=== PATIENT | female | born 1955 | race Caucasian/White ===

== ENCOUNTER 2017-01-20 21:36 | Observation (INO) | payer MEDICAID ==
[2017-01-20] MEDS ORDERED: Aspirin 325 mg EC Tablets PO STA (21:59)
--- NOTE | 2017-01-20 22:03 | C.PDOC ---
History Of Present Illness 61 y/o female presents to the ED with complains of chest discomfort intermittently for the past 6 days. Symptoms initially onset while patient was standing in kitchen, with sudden midsternal chest pressure, diaphoresis and SOB lasting 15 minutes and then resolving. Since initial episode, pt reports similar episodes occurring with mild exertion. Pt has no known cardiac disease. FMHx heart disease. Nonsmoker. Pt referred to ED by Dr Lin for admission with unstable angina. Time Seen by Provider: 01/20/17 21:49 Chief Complaint (Nursing): Chest Pain History Per: Patient History/Exam Limitations: no limitations Onset/Duration Of Symptoms: Days, Intermittent Episodes Current Symptoms Are (Timing): Still Present Severity: Moderate Exacerbating Factors: Exertion Recent travel outside of the [place]: No Past Medical History Reviewed: Historical Data, Nursing Documentation, Vital Signs Vital Signs: Last Vital Signs Temp Pulse 82 01/20/17 21:50 Resp 16 01/20/17 21:50 BP 160/84 H 01/20/17 21:50 Pulse Ox 100 01/20/17 22:06 - Medical History PMH: HTN Family History: States: Other (heart disease) - Social History Hx Alcohol Use: No Hx Substance Use: No - Immunization History Hx Tetanus Toxoid Vaccination: No Hx Influenza Vaccination: No Hx Pneumococcal Vaccination: No Review Of Systems Except As Marked, All Systems Reviewed And Found Negative. Constitutional: Positive for: Sweats. Negative for: Fever Cardiovascular: Positive for: Chest Pain. Negative for: Palpitations Respiratory: Positive for: Shortness of Breath Gastrointestinal: Negative for: Vomiting Neurological: Negative for: Headache Physical Exam - Physical Exam Appears: Non-toxic, No Acute Distress Skin: Warm, Dry, No Rash Head: Atraumatic, Normacephalic Neck: Normal ROM, Supple Chest: Symmetrical, No Tenderness Cardiovascular: Rhythm Regular, No Murmur Respiratory: Normal Breath Sounds, No Rales, No Rhonchi, No Wheezing Gastrointestinal/Abdominal: Soft Extremity: No Pedal Edema Extremity: Bilateral: Atraumatic Neurological/Psych: Oriented x3 ED Course And Treatment - Laboratory Results Result Diagrams: 01/20/17 22:10 01/20/17 22:10 Lab Interpretation: No Acute Changes ECG: Interpreted By Ak ECG Rhythm: Sinus Rhythm ECG Interpretation: Normal O2 Sat by Pulse Oximetry: 100 (on room air) Pulse Ox Interpretation: Normal - Radiology CXR: Interpreted by Me CXR Interpretation: Yes: No Acute Disease - Physician Consult Information Time Consulting Physician Contacted: 22:36 Physician Contacted: Jovon Kaur Outcome Of Conversation: Patient to be admitted for evaluation of new onset angina. Dr Lin will consult. Disposition - Disposition Disposition: HOSPITALIZED Disposition Time: 22:36 Condition: STABLE - POA Present On Arrival: None - Clinical Impression Clinical Impression: Chest pain - Scribe Statement The provider has reviewed the documentation as recorded by the Ty Ruiz Provider Attestation: Plan: EKG, labs, CXR, aspirin, IV fluids
[2017-01-20] MEDS ORDERED: Aspirin 325 mg EC Tablets PO ONE (22:04)
[2017-01-20 22:17] LABS: BASO # 0.1 K/uL (0.0-0.2); BASO % 1.1 % (0.0-2.0); EOS # 0.1 K/uL (0.0-0.7); EOS % 2.4 % (0.0-4.0); HEMATOCRIT 35.9 % (34.0-47.0); LYMPH % 32.1 % (20.0-40.0); MEAN CELL VOLUME 85.5 fL (81.0-99.0); MEAN CORPUSCULAR HEMOGLOBIN 28.5 pg (27.0-31.0); MEAN CORPUSCULAR HGB CONC 33.3 g/dL (33.0-37.0); MONO # 0.5 K/uL (0.0-0.8); MONO % 7.7 % (0.0-10.0); RED CELL DISTRIBUTION WIDTH 13.1 % (11.5-14.5); WHITE BLOOD COUNT 6.4 K/uL (4.8-10.8)
[2017-01-20 22:23] LABS: CHLORIDE 98 mmol/L (98-107); POTASSIUM 4.2 mmol/L (3.6-5.2); SODIUM 140 mmol/L (132-148)
[2017-01-20 22:25] LABS: GFR AFRICAN-AMERICAN > 60
[2017-01-20 22:26] LABS: ALB/GLOB RATIO 1.3 (1.0-2.1); ALKALINE PHOSPHATASE 62 U/L (38-126); ALT/SGPT 16 U/L (9-52); AST/SGOT 26 U/L (14-36); BILIRUBIN,TOTAL 0.4 mg/dL (0.2-1.3); BLOOD UREA NITROGEN 13 mg/dL (7-17); CARBON DIOXIDE 28 mmol/L (22-30); GLUCOSE,RANDOM 106 mg/dL (65-105); TOTAL PROTEIN 7.2 g/dL (6.3-8.3)
[2017-01-20 22:27] LABS: CALCIUM 8.8 mg/dl (8.6-10.4)
--- NOTE | 2017-01-20 23:05 | CP.PCM.HP ---
History of Present Illness - History of Present Illness History of Present Illness: Chief complaint: Chest pain History present illness: 61-year-old female with history of hypercholesteremia came to the emergency room with the ongoing chest pain. Patient started noticing sudden onset of chest discomfort almost a week ago, at the time patient was having dizziness, sudden onset of palpitation and sweating , and she was also having some dizziness at the time. Prior to that she was having some dizzy episodes at least 2 weeks. During the time also initially the first time she started having elevated blood pressure. The symptoms immediately disappeared, but she started having continuous the chest discomfort, ongoing chest pressure noted, in spite of anything in spite of being resting symptoms did not disappear. Patient did not go to the hospital until now. She still even now continues to have a chest discomfort and chest palpitation. But the sweating and dizziness got better. The blood pressure noted to be elevated Past medical history: Hypercholesteremia vitamin deficiency Allergy: No known drug allergy Personal history: Nonsmoker nonalcoholic lives with family Surgical history Family history: Significant for heart disease brothers had heart disease at the age of 60 Review of system: Denies any headache at this time, denies any nausea vomiting, chest pressure still noted, no nausea, denies any abdominal pain, no leg swelling, recently patient was also having minimal leg edema On examination: Vital signs reviewed in Mild elevation of the blood pressure noted. 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 EKG normal sinus rhythm no ST-T changes noted. Labs reviewed with normal findings Assessment/condition: 58-year-old female came to the emergency room with ongoing chest discomfort and chest pain, postmenopausal, with the high family risk of heart disease with ongoing possible unstable angina. We'll admit the patient. Cardiac monitoring. Cardiology evaluation, possible evaluation in the morning. Cardiac enzymes. Aspirin beta aiden, anticoagulation Present on Admission - Present on Admission Any Indicators Present on Admission: No History of DVT/PE: No History of Uncontrolled Diabetes: No Urinary Catheter: No Decubitus Ulcer Present: No Past Patient History - Past Social History Smoking Status: Never Smoked - CARDIAC Hx Hypertension: Yes - PSYCHIATRIC Hx Substance Use: No Meds Allergies/Adverse Reactions: Allergies Allergy/AdvReac Type Severity Reaction Status Date / Time No Known Allergies Allergy Verified 01/20/17 21:54 Results - Vital Signs Recent Vital Signs: Last Vital Signs Temp Pulse 82 01/20/17 21:50 Resp 16 01/20/17 21:50 BP 160/84 H 01/20/17 21:50 Pulse Ox 100 01/20/17 22:36 - Labs Result Diagrams: 01/20/17 22:10 01/20/17 22:10 Labs: Laboratory Results - last 24 hr 01/20/17 22:10 WBC 6.4 RBC 4.20 Hgb 11.9 Hct 35.9 MCV 85.5 MCH 28.5 MCHC 33.3 RDW 13.1 Plt Count 243 MPV 9.0 Neut % (Auto) 56.7 Lymph % (Auto) 32.1 [place] % (Auto) 7.7 Eos % (Auto) 2.4 Baso % (Auto) 1.1 Neut # 3.6 Lymph # 2.0 [place] # 0.5 Eos # 0.1 Baso # 0.1 Sodium 140 Potassium 4.2 Chloride 98 Carbon Dioxide 28 Anion Gap 19 BUN 13 Creatinine 0.8 Est GFR ( Amer) > 60 Est GFR (Non-Af Amer) > 60 Random Glucose 106 H Calcium 8.8 Total Bilirubin 0.4 AST 26 ALT 16 Alkaline Phosphatase 62 Troponin I < 0.0120 Total Protein 7.2 Albumin 4.2 Globulin 3.1 Albumin/Globulin Ratio 1.3
[2017-01-21 07:31] LABS: CHOLESTEROL 122 mg/dL (0-199)
[2017-01-21 07:58] VITALS: PULSE 71; TEMP 98.4; O2SAT 98
--- NOTE | 2017-01-21 09:11 | RAD ---
PROCEDURE: CHEST RADIOGRAPH, 1 VIEW HISTORY: chest pain COMPARISON: None available. FINDINGS: LUNGS: Clear. PLEURA: No pneumothorax or pleural fluid seen. CARDIOVASCULAR: Normal. OSSEOUS STRUCTURES: No significant abnormalities. VISUALIZED UPPER ABDOMEN: Normal. OTHER FINDINGS: None. IMPRESSION: No active disease.
[2017-01-21] MEDS ORDERED: Enoxaparin 40 mg Syringe SC SCH (10:00)
[2017-01-21] MEDS ORDERED: Pantoprazole 40 mg EC Tab PO SCH (10:00)
--- NOTE | 2017-01-21 10:30 | CP.PCM.CON ---
<An Shirley - Last Filed: 01/21/17 10:24> History of Present Illness - History of Present Illness History of Present Illness: Cardiology Consult Note for Dr. Shaw Reason for Consult: Chest pain This is a 61Y F with PMH of hyperlipidemia who came to the ED with chest pain since yesterday. She reports that she was standing and she suddenly had chest pain located in the left side of the chest. The pain is described as a pressure and it did not radiate. During this time she was having palpitations and diaphoresis. The pain was worse when walking up the stairs. It eventually went away on its own. This has happened once before in the past, but not as bad as this episode. She also said she has been feeling lightheaded for the past 3 weeks, but it has improved with time. She denies having CP, SOB, n/v/d, numbness /tingling, or vision changes. Patient reports she was on Atorvastatin at one point because her cholesterol was borderline, but does not take it now. PMH: HLD PSH: Lasik eye surgery Home meds: Calcium/Vit D All: NKDA SH: Denies EtOH, tobacco, and drug use. 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 FH: Brother: from [place] at age 64 Brother: Heart disease at 60 and metastatic cancer (not sure what origin) Review of Systems - Review of Systems Review of Systems: As per HPI Past Patient History - Past Medical History & Family History Past Medical History?: Yes - Past Social History Smoking Status: Never Smoked Alcohol: None Drugs: Denies Home Situation {Lives}: Alone - CARDIAC Hx Hypertension: Yes - MUSCULOSKELETAL/RHEUMATOLOGICAL Hx Falls: No - PSYCHIATRIC Hx Substance Use: No Meds Allergies/Adverse Reactions: Allergies Allergy/AdvReac Type Severity Reaction Status Date / Time No Known Allergies Allergy Verified 01/20/17 21:54 - Medications Medications: Current Medications Aspirin (Aspirin) 325 mg PO DAILY [facility] Enoxaparin Sodium (Lovenox) 40 mg SC DAILY [facility] Metoprolol Tartrate (Lopressor) 25 mg PO BID [facility] Pantoprazole Sodium (Protonix Ec Tab) 40 mg PO DAILY [facility] Rosuvastatin Calcium (Crestor) [address] [facility] Physical Exam - Constitutional Appears: No Acute Distress - Head Exam Head Exam: ATRAUMATIC, NORMAL INSPECTION, NORMOCEPHALIC - Eye Exam Eye Exam: Normal appearance Pupil Exam: NORMAL ACCOMODATION - ENT Exam ENT Exam: Mucous Membranes Moist - Respiratory Exam Respiratory Exam: Clear to Auscultation Bilateral, NORMAL BREATHING PATTERN. absent: Rales, Rhonchi, Wheezes - Cardiovascular Exam Cardiovascular Exam: REGULAR RHYTHM, +S1, +S2. absent: Gallop, Rubs - GI/Abdominal Exam GI & Abdominal Exam: Normal Bowel Sounds, Soft. absent: Guarding, Rebound, Rigid, Tenderness - Extremities Exam Extremities exam: Positive for: normal inspection. Negative for: calf tenderness, pedal edema - Neurological Exam Neurological exam: Alert, CN II-XII Intact, Oriented x3 - Psychiatric Exam Psychiatric exam: Normal Affect, Normal Mood - Skin Skin Exam: Dry, Normal Color, Warm Results - Vital Signs Recent Vital Signs: Last Vital Signs Temp 98.4 F 01/21/17 07:10 Pulse 71 01/21/17 07:30 Resp 01/21/17 07:10 BP 113/67 01/21/17 07:10 Pulse Ox 98 01/21/17 07:10 - Labs Result Diagrams: 01/20/17 22:10 01/20/17 22:10 Labs: Laboratory Results - last 24 hr 01/21/17 06:53 Hemoglobin A1c 5.9 Total Creatine Kinase 88 CK-MB (Mass) 0.48 Troponin I, Quant < 0.0120 Triglycerides 65 Cholesterol 122 LDL Cholesterol Direct 57 HDL Cholesterol 46 Assessment & Plan - Assessment and Plan (Free Text) Assessment: This is a 61Y F with PMH of HLD admitted for 1) Chest pain 2) HLD Plan: - As per Dr. Lin, patient will have cardiac cath today - Echo done- final results pending - EKG showed NSR - Continue Crestor, ASA, Lopressor GI ppx: Protonix DVT ppx: Lovenox Case seen, reviewed and discussed with Dr. Valeria Shirley PGY1 - Date & Time Date: 01/21/17 Time: 10:00 <Guzman Shaw - Last Filed: 01/21/17 20:20> Results - Vital Signs Recent Vital Signs: Last Vital Signs Temp 98.4 F 01/21/17 07:10 Pulse 71 01/21/17 18:00 Resp 17 01/21/17 07:10 BP 116/72 01/21/17 10:56 Pulse Ox 98 01/21/17 07:10 - Labs Result Diagrams: 01/20/17 22:10 01/20/17 22:10 Labs: Laboratory Results - last 24 hr 01/21/17 06:53 Hemoglobin A1c 5.9 Total Creatine Kinase 88 CK-MB (Mass) 0.48 Troponin I, Quant < 0.0120 Triglycerides 65 Cholesterol 122 LDL Cholesterol Direct 57 HDL Cholesterol 46 Attending/Attestation - Attestation I have personally seen and examined this patient.: Yes I have fully participated in the care of the patient.: Yes I have reviewed all pertinent clinical information: Yes Notes (Text): 01/21/17 20:20 Pt will need cath typical p with angina
[2017-01-21 10:58] VITALS: BP 116/72
[2017-01-21] MEDS ORDERED: Nitroglycerin 50mg in D5W 250 ML IV ONE (14:20)
[2017-01-21] MEDS ORDERED: Midazolam 2 MG/2 ML VIAL ONE (14:20)
--- NOTE | 2017-01-21 15:25 | CP.PCM.CON ---
History of Present Illness - History of Present Illness History of Present Illness: Patient s/p LHC Right Radial access 1. Normal coronaries 2. Normal EF Non cardiac chest pain D/c home in 3 hours F/U PMD Past Patient History - Past Medical History & Family History Past Medical History?: Yes - Past Social History Smoking Status: Never Smoked Alcohol: None Drugs: Denies Home Situation {Lives}: Alone - CARDIAC Hx Hypertension: Yes - MUSCULOSKELETAL/RHEUMATOLOGICAL Hx Falls: No - PSYCHIATRIC Hx Substance Use: No Meds Allergies/Adverse Reactions: Allergies Allergy/AdvReac Type Severity Reaction Status Date / Time No Known Allergies Allergy Verified 01/20/17 21:54 - Medications Medications: Current Medications Aspirin (Aspirin) 325 mg PO DAILY [facility] Last Admin: 01/21/17 10:57 Dose: Not Given Enoxaparin Sodium (Lovenox) 40 mg SC DAILY [facility] Last Admin: 01/21/17 10:56 Dose: Not Given Metoprolol Tartrate (Lopressor) 25 mg PO BID [facility] Last Admin: 01/21/17 10:56 Dose: Not Given Pantoprazole Sodium (Protonix Ec Tab) 40 mg PO DAILY [facility] Last Admin: 01/21/17 10:57 Dose: Not Given Rosuvastatin Calcium (Crestor) 5 mg PO [facility] Results - Vital Signs Recent Vital Signs: Last Vital Signs Temp 98.4 F 01/21/17 07:10 Pulse 71 01/21/17 07:30 Resp 17 01/21/17 07:10 BP 116/72 01/21/17 10:56 Pulse Ox 98 01/21/17 07:10 - Labs Result Diagrams: 01/20/17 22:10 01/20/17 22:10 Labs: Laboratory Results - last 24 hr 01/21/17 06:53 Hemoglobin A1c 5.9 Total Creatine Kinase 88 CK-MB (Mass) 0.48 Troponin I, Quant < 0.0120 Triglycerides 65 Cholesterol 122 LDL Cholesterol Direct 57 HDL Cholesterol 46
--- NOTE | 2017-01-21 15:37 | CARDCATH ---
PROCEDURE DATE: 01/21/2017 PROCEDURES: 1. Left heart catheterization. 2. Coronary angiogram. CLINICAL INDICATIONS: Unstable angina and hyperlipidemia. REFERRING PHYSICIAN: Dr. Jovon Kaur. PERFORMING PHYSICIAN: Dr. Efren Lin. PROCEDURE: After informed consent, the patient was prepped and draped in the usual sterile fashion. 2% lidocaine was given in the right wrist for local anesthesia. Using micropuncture technique, 6-Fr ench glide sheath was introduced into right radial artery. Using 6-[place] catheter and JR4, le ft heart catheterization and coronary angiogram was performed. The patient tolerated the procedure w ell. Post procedure, Terumo radial band applied with excellent hemostasis. FINDINGS: 1. Left main coronary artery is patent. 2. LAD and diagonal branches are patent. 3. Left circumflex is nondominant and patent. 4. Right coronary artery is dominant and patent. 5. LV ejection fraction is approximately 85%. EDP is 17. No wall motion abnormality is noted. No gradient across the aortic valve. IMPRESSION: 1. Normal coronaries. 2. Normal left ventricular systolic function. Efren Lin MD cc: [id number] TT: 01/21/2017 15:37:39 wai
--- NOTE | 2017-01-21 18:09 | CP.PCM.PN ---
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 Lin, cleared for discharge home otday after 6pm , D/W with Dr. Camacho , stable for discharge home today and f/u with Dr. Jefe rivas e in 1 week Plan discussed with patient and daughter, who understands and agrees with plan Objective - Vital Signs/Intake and Output Vital Signs (last 24 hours): Temp Pulse Resp BP Pulse Ox 98.4 F 71 17 116/72 98 01/21/17 07:10 01/21/17 07:30 01/21/17 07:10 01/21/17 10:56 01/21/17 07:10 - Medications Medications: Current Medications Aspirin (Aspirin) 325 mg PO DAILY [facility] Last Admin: 01/21/17 10:57 Dose: Not Given Enoxaparin Sodium (Lovenox) 40 mg SC DAILY [facility] Last Admin: 01/21/17 10:56 Dose: Not Given Metoprolol Tartrate (Lopressor) 25 mg PO BID [facility] Last Admin: 01/21/17 10:56 Dose: Not Given Pantoprazole Sodium (Protonix Ec Tab) 40 mg PO DAILY [facility] Last Admin: 01/21/17 10:57 Dose: Not Given Rosuvastatin Calcium (Crestor) 5 mg PO [facility]
--- NOTE | 2017-01-21 21:01 | CARD ---
APPROVED REPORT EXAM: Two-dimensional and M-mode echocardiogram with Doppler and color Doppler. Other Information Quality : GoodRhythm : INDICATION Dizziness and Vertigo Palpitations V. ANGINA, HIGH CHOL M-Mode DIMENSIONS RVDd1.21 (2.1-3.2cm)Left Atrium (MM)2.45 (2.5-4.0cm) IVSd0.85 (0.7-1.1cm)Aortic Root1.92 (2.2-3.7cm) LVDd3.95 (4.0-5.6cm)Aortic Cusp Exc.1.52 (1.5-2.0cm) PWd0.99 (0.7-1.1cm)FS (%) 52 % LVDs1.89 (2.0-3.8cm)LVEF (%)84 (>50%) Aortic Valve AoV Peak Fgqrqolo909.8cm/[place]sea Peak GR.7mmHg Mitral Valve MV E Uyckpowt77.3cm/sMV A Nbjbpnjn26.2cm/sE/A ratio1.2 TDI E/Lateral E'0.0E/Medial E'0.0 Tricuspid Valve TR Peak [id number]/sTR Peak Gr.17vaPzWCEV83bqTo LEFT VENTRICLE The left ventricle is normal size. There is mild concentric left ventricular hypertrophy. The left ventricular function is normal. The left ventricular ejection fraction is within the normal range. About65% No regional wall motion abnormalities noted. The left ventricular diastolic function is normal. No left ventricle thrombus noted on this study. There is no ventricular septal defect visualized. There is no left ventricular aneurysm. There is no mass noted in the left ventricle. RIGHT VENTRICLE The right ventricle is normal size. There is normal right ventricular wall thickness. The right ventricular systolic function is normal. ATRIA The left atrium size is normal. The right atrium size is normal. The interatrial septum is intact with no evidence for an atrial septal defect. AORTIC VALVE The aortic valve is normal in structure and function. No aortic regurgitation is present. There is no aortic valvular stenosis. There is no aortic valvular vegetation. MITRAL VALVE The mitral valve is normal in structure and function. There is no evidence of mitral valve prolapse. There is no mitral valve stenosis. There is no mitral valve regurgitation noted. TRICUSPID VALVE The tricuspid valve is normal in structure and function. There is mild tricuspid valve regurgitation noted. There is no tricuspid valve prolapse or vegetation. There is no tricuspid valve stenosis. PULMONIC VALVE The pulmonary valve is normal in structure and function. There is no pulmonic valvular regurgitation. There is no pulmonic valvular stenosis. GREAT VESSELS The aortic root is normal in size. The ascending aorta is normal in size. The pulmonary artery is normal. The IVC is normal in size and collapses >50% with inspiration. PERICARDIAL EFFUSION The pericardium appears normal. There is no pleural effusion. <Conclusion> Normal LV EF There is mild concentric left ventricular hypertrophy. Normal Doppler.
--- NOTE | 2017-01-21 21:27 | CARD ---
APPROVED REPORT EKG Measurement Heart [id number] <Conclusion> Normal sinus rhythm Normal ECG
[2017-01-27 14:59] VITALS: RESP 16
--- NOTE | 2017-01-28 20:29 | CP.PCM.DIS ---
Provider - Provider Date of Admission: 01/20/17 22:37 Attending physician: Jovon Kaur MD Time Spent in preparation of Discharge (in minutes): 45 Hospital Course - Lab Results Lab Results: Most Recent Lab Values WBC 6.4 K/uL (4.8-10.8) 01/20/17 22:10 RBC 4.20 Mil/uL (3.80-5.20) 01/20/17 22:10 Hgb 11.9 g/dL (11.0-16.0) 01/20/17 22:10 Hct 35.9 % (34.0-47.0) 01/20/17 22:10 MCV 85.5 fL (81.0-99.0) 01/20/17 22:10 MCH 28.5 pg (27.0-31.0) 01/20/17 22:10 MCHC 33.3 g/dL (33.0-37.0) 01/20/17 22:10 RDW 13.1 % (11.5-14.5) 01/20/17 22:10 Plt Count 243 K/uL (130-400) 01/20/17 22:10 MPV 9.0 fL (7.2-11.7) 01/20/17 22:10 Neut % (Auto) 56.7 % (50.0-75.0) 01/20/17 22:10 Lymph % (Auto) 32.1 % (20.0-40.0) 01/20/17 22:10 Worth % (Auto) 7.7 % (0.0-10.0) 01/20/17 22:10 Eos % (Auto) 2.4 % (0.0-4.0) 01/20/17 22:10 Baso % (Auto) 1.1 % (0.0-2.0) 01/20/17 22:10 Neut # 3.6 K/uL (1.8-7.0) 01/20/17 22:10 Lymph # 2.0 K/uL (1.0-4.3) 01/20/17 22:10 Worth # 0.5 K/uL (0.0-0.8) 01/20/17 22:10 Eos # 0.1 K/uL (0.0-0.7) 01/20/17 22:10 Baso # 0.1 K/uL (0.0-0.2) 01/20/17 22:10 Sodium 140 mmol/L (132-148) 01/20/17 22:10 Potassium 4.2 mmol/L (3.6-5.2) 01/20/17 22:10 Chloride 98 mmol/L (98-107) 01/20/17 22:10 Carbon Dioxide 28 mmol/L (22-30) 01/20/17 22:10 Anion Gap 19 (10-20) 01/20/17 22:10 BUN 13 mg/dL (7-17) 01/20/17 22:10 Creatinine 0.8 MG/DL (0.7-1.2) 01/20/17 22:10 Est GFR ( Amer) > 60 01/20/17 22:10 Est GFR (Non-Af Amer) > 60 01/20/17 22:10 Random Glucose 106 mg/dL (65-105) H 01/20/17 22:10 Hemoglobin A1c 5.9 % (4.2-6.5) 01/21/17 06:53 Calcium 8.8 mg/dl (8.6-10.4) 01/20/17 22:10 Total Bilirubin 0.4 mg/dL (0.2-1.3) 01/20/17 22:10 AST 26 U/L (14-36) 01/20/17 22:10 ALT 16 U/L (9-52) 01/20/17 22:10 Alkaline Phosphatase 62 U/L (38-126) 01/20/17 22:10 Total Creatine Kinase 88 U/L (30-135) 01/21/17 06:53 CK-MB (Mass) 0.48 ng/mL (0.0-3.38) 01/21/17 06:53 Troponin I < 0.0120 ng/mL (0.00-0.120) 01/20/17 22:10 Troponin I, Quant < 0.0120 ng/mL (0.00-0.120) 01/21/17 06:53 Total Protein 7.2 g/dL (6.3-8.3) 01/20/17 22:10 Albumin 4.2 g/dL (3.5-5.0) 01/20/17 22:10 Globulin 3.1 gm/dL (2.2-3.9) 01/20/17 22:10 Albumin/Globulin Ratio 1.3 (1.0-2.1) 01/20/17 22:10 Triglycerides 65 mg/dL (0-149) 01/21/17 06:53 Cholesterol 122 mg/dL (0-199) 01/21/17 06:53 LDL Cholesterol Direct 57 mg/dL (0-129) 01/21/17 06:53 HDL Cholesterol 46 mg/dL (30-70) 01/21/17 06:53 - Hospital Course Hospital Course: Chief complaint: Chest pain History present illness: 61-year-old female with history of hypercholesteremia came to the emergency room with the ongoing chest pain. Patient started noticing sudden onset of chest discomfort almost a week ago, at the time patient was having dizziness, sudden onset of palpitation and sweating , and she was also having some dizziness at the time. Prior to that she was having some dizzy episodes at least 2 weeks. During the time also initially the first time she started having elevated blood pressure. The symptoms immediately disappeared, but she started having continuous the chest discomfort, ongoing chest pressure noted, in spite of anything in spite of being resting symptoms did not disappear. Patient did not go to the hospital until now. She still even now continues to have a chest discomfort and chest palpitation. But the sweating and dizziness got better. The blood pressure noted to be elevated Past medical history: Hypercholesteremia vitamin deficiency Allergy: No known drug allergy Personal history: Nonsmoker nonalcoholic lives with family Surgical history Family history: Significant for heart disease brothers had heart disease at the age of 60 Review of system: Denies any headache at this time, denies any nausea vomiting, chest pressure still noted, no nausea, denies any abdominal pain, no leg swelling, recently patient was also having minimal leg edema On examination: Vital signs reviewed in Mild elevation of the blood pressure noted. Chest good air entry bilaterally regular heart sound nontender abdomen and no pedal edema [employer] alert awake oriented 3 no functional neurological deficit Patient's labs reviewed Chest x-ray nonspecific. EKG normal sinus rhythm no ST-T changes noted. Labs reviewed with normal findings Assessment/condition: 58-year-old female came to the emergency room with ongoing chest discomfort and chest pain, postmenopausal, with the high family risk of heart disease with ongoing possible unstable angina. We'll admit the patient. Cardiac monitoring. Cardiology evaluation, possible evaluation in the morning. Cardiac enzymes. Aspirin beta aiden, anticoagulation course in the hospital: Patient underwent a cardiac catheterization, normal coronaries, patient clinically stable, discharge home. Patient will follow up with PMD. Patient family understand the diagnosis. Final diagnosis: Atypical chest pain. Gastroesophageal reflux disease. Anxiety. Discharge Exam - Head Exam Head Exam: ATRAUMATIC, NORMAL INSPECTION, NORMOCEPHALIC Discharge Plan - Follow Up Plan Condition: STABLE Disposition: HOME/ ROUTINE Instructions: Chest Pain (DC), Heart Healthy Diet (DC), Hypertension (DC), Heart Catheterization (DC) Additional Instructions: f/u with Dr. Kaur office in [address] today - resume driving by satarday Stop taking aspirin Continue with lipitor If any numbness /tinglings /bleeding noted ( R arm ) - please call Dr. Kaur or returns to ED Referrals: Efren Lin MD [Staff Provider] - Jovon Kaur MD [Staff Provider] -
== END 2017-01-21 18:50 | disposition home or self-care (01) ==
LOC: C.ER 21:36 → C.9E 22:37 → C.6T 23:23
PROVIDERS: ADMIT Internal Medicine; ATTEND Internal Medicine
DX: R07.9 Chest pain, unspecified (principal); I10 Essential (primary) hypertension
CPT/HCPCS: 36415; 71010; 80053; 80061; 83036; 84484; 85025; 93005; 93306; 93458; 99283; C1769; C1887; C1894; G0378; J1644; J2250; J3010; Q9967